=== PATIENT | male | born 1985 | race Caucasian/White ===

== ENCOUNTER 2016-09-03 11:01 | Emergency (ER) | payer OTHER ==
[~2016-09-03] VITALS: Ht 182.9 cm; Wt 126.7 kg
[~2016-09-03 11:01] MED LIST changes: -IBP200T PO
--- OUTSIDE RECORDS SUMMARY | 2016-09-03 11:08 | XMS REPORT | Continuity of Care Document ---
Author Author [facility] Organization [facility] Address Unknown Phone Unavailable Allergies Medications Problems Date Dx Coded Attending Type Code Diagnosis Diagnosed By 04/09/2014 Daniel Gregorio M.D. 079.99 VIRAL INFECTION NOS 04/09/2014 Daniel Gregorio M.D. 305.1 TOBACCO USE DISORDER 04/09/2014 Daniel Gregorio M.D. 487.1 FLU W RESP MANIFEST NEC 04/09/2014 Daniel Gregorio M.D. 787.01 NAUSEA WITH VOMITING 08/31/2015 Oren Gomes D.O. F17.210 NICOTINE DEPENDENCE, CIGARETTES, UNCOMPLICATED 08/31/2015 Oren Gomes D.O. 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 Guy K04.7 PERIAPICAL ABSCESS WITHOUT SINUS Procedures Results Test Result Range AG INFLUENZA A B - 04/09/14 15:30 Performing Location: AG INFLUENZA A NEGATIVE NEGATIVE AG INFLUENZA B POSITIVE NEGATIVE CBC WITH DIFFERENTIAL - 04/09/14 15:40 WHITE BLOOD CELL 8.1 k/cumm 4.8-10.8 RED BLOOD CELL 5.05 m/cumm 4.7-6.4 HEMOGLOBIN 15.6 gm/dL 14.0-18.0 HEMATOCRIT 44.3 % 42-52 MEAN CELL VOLUME 87.7 fl 80-94 MEAN CELL HGB 30.9 pg 27-31 MEAN CELL HGB CONCENTRATION 35.2 g/dL 33.0-37.0 RED CELL DISTRIBUTION WIDTH 12.3 % 11.5- 14.5 PLATELET COUNT 207 k/cumm 130-400 NEUTROPHIL % 84.5 % 43-65 LYMPHOCYTE % 8.1 % 20-45 MONOCYTE % 6.8 % 5-12 EOSINOPHIL % 0.4 % 0.9-2.9 BASOPHIL % 0.2 % 0.25-1.0 ABSOLUTE NEUTROPHIL # 6.88 k/cumm 2.2- 4.8 LYMPHOCYTE # 0.7 k/cumm 1.3-2.9 MONOCYTE # 0.6 k/cumm 0.31-0.83 EOSINOPHIL # 0.0 k/cumm 0.05-0.22 BASOPHIL # 0.0 k/cumm 0.02-0.06 DIFFERENTIAL/MORPHOLOGY AUTO DIFF Performing Location: METABOLIC PANEL, [facility] - 04/09/14 15:40 Performing Location: SODIUM 137 mmol/L 135-145 POTASSIUM 4.1 mmol/L 3.6-5.2 CHLORIDE 102 mmol/L 100-108 CARBON DIOXIDE 25.6 mmol/L 21.0-32.0 ANION GAP 14 mmol/L 10-20 GLUCOSE 116 mg/dL 70-110 BLOOD UREA NITROGEN 17 mg/dL 7-22 CREATININE 1.4 mg/dL 0.8-1.3 BUN/CREATININE RATIO 12.1 GLOMERULAR FILTRATION RATE 64.06 CALCIUM 8.4 mg/dL 8.7-10.5 TOTAL PROTEIN 6.9 gm/dL 6.0-8.0 ALBUMIN 3.4 gm/dL 3.5-5.0 GLOBULIN 3.5 gm/dL 2.1-3.5 ALBUMIN/GLOBULIN RATIO 1.0 1.1-2.2 BILIRUBIN TOTAL 0.6 mg/dL 0.0-1.0 SGOT/AST 29 UNIT/L 15-37 SGPT/ALT 65 UNIT/L 12-78 ALKALINE PHOSPHATASE TOTAL 95 UNIT/L 46- 116 Encounters ACCT No. Visit Date/Time Discharge Status Pt. Type Provider Facility Loc./Unit Complaint [id number] 08/31/2015 05:03:00 2015 05:46:00 DIS Emergency Oren Gomes D.O. [facility] D.ER [id number] 04/09/2014 14:58:00 2013 16:56:00 DIS Emergency Daniel Gregorio M.D. [facility] D.ER
[2016-09-03] MEDS ORDERED: SODIUM CHLORIDE FLUSH 10 ML SYR IV PRN (11:20)
[2016-09-03] MEDS ORDERED: ONDANSETRON 2 MG/ML (Z0FRAN) 2 ML VIAL IV ONE (11:20)
[2016-09-03] MEDS ORDERED: SODIUM CHLORIDE FLUSH 3 ML SYR IV ONE (11:20)
[2016-09-03] MEDS ORDERED: KETOROLAC 30 MG/ML (TORADOL) 1 ML VIAL IV ONE (11:20)
[2016-09-03] MEDS ORDERED: IBP200T PO (11:30)
[2016-09-03 11:36] LABS: BASOPHILS % (AUTO) 0 % (0-2); EOSINOPHILS # (AUTO) 0.3 10^3uL; EOSINOPHILS % (AUTO) 4 % (0-4); MEAN CORPUSCULAR VOLUME 89 FL (80-100); MONOCYTES # (AUTO) 0.6 X10^3; MONOCYTES % (AUTO) 8 % (3-11); NEUTROPHILS % (AUTO) 63 % (51-67); PLATELET COUNT 223 10^3uL (150-450); WHITE BLOOD COUNT 7.93 10^3uL (4.0-11.0)
[2016-09-03 11:37] LABS: MEAN CORPUSCULAR HEMOGLOBIN 31.4 PG (26.0-34.0); MEAN CORPUSCULAR HGB CONC 35.5 g/dL (31.0-37.0)
[2016-09-03 11:45] LABS: ALBUMIN 4.2 g/dL (3.4-5.0); ANION GAP 16.4 MEQ/L (3-15); TOTAL PROTEIN 7.5 g/dL (6.4-8.5)
[2016-09-03 11:47] LABS: BILIRUBIN,URINE Negative (Negative); CLARITY,URINE Clear; COLOR,URINE Dark Yellow; GLUCOSE, URINE (UA) Negative (Negative); LEUKOCYTE ESTERASE ,URINE Negative (Negative); PH,URINE 5.5 (5.0 - 8.0); UROBILINOGEN,URINE 0.2 mg/dL (0.2-1.0)
[2016-09-03 11:55] LABS: AMPHETAMINE SCREEN, URINE Negative (Negative); CANNABINOID SCREEN, URINE Negative (Negative); METHAMPHETAMINE SCREEN URINE S NEGATIVE (NEGATIVE); OPIATE SCREEN URINE Negative (Negative); PROPOXYPHENE STAT NEGATIVE (NEGATIVE)
--- NOTE | 2016-09-03 12:24 | Diagnostic Imaging Report ---
PROCEDURE: CT abdomen and pelvis without contrast. TECHNIQUE: Multiple contiguous axial images were obtained through the abdomen and pelvis without the use of intravenous contrast. INDICATION: Right lower quadrant pain. FINDINGS: Lung bases are clear. Liver appears normal. Gallbladder and bile ducts are normal. Pancreas and spleen are normal. Adrenal glands appear normal. Kidneys show no evidence of obstruction or calculi. Renal outlines are smooth. The stomach and small bowel are not distended. The colon shows normal stool and gas pattern. The appendix is visualized and is normal. There are diverticuli in the descending and sigmoid colon but no evidence of diverticulitis. There is no free air or free fluid. No intra-abdominal adenopathy of pathologic size. IMPRESSION: 1. The appendix is visualized and normal. 2. There is diverticulosis of the descending colon without evidence of diverticulitis. 3. Gallbladder and bile ducts are normal. Dictated by: Dictated on workstation # [id number]
[2016-09-03] MEDS ORDERED: HYDR-3702 PO (12:43)
[2016-09-03 13:38] VITALS: BP 114/77
== END 2016-09-03 13:25 | disposition home or self-care (01) ==
LOC: EDUNIT# 11:01 → ED 11:04
DX: R10.31 Right lower quadrant pain (principal)
CPT/HCPCS: 36415; 74176; 80053; 80307; 81003; 82150; 83690; 85025; 86140; 96361; 96374; 96375; 99284; J1885; J2405; J7030; 99283

== ENCOUNTER → 2016-09-03 | Outpatient (CLI) | payer OTHER ==
[~2016-09-03] MED LIST: BACI3.5O6 OS; HYDR-3702 PO; IBP200T PO
[2016-09-03 10:58] VITALS: BP 147/91
--- NOTE | 2016-09-03 10:58 | Urgent Care T Sheet Gen (E) ---
Intake General Temperature (Fahrenheit): 97.2 Pulse: 72 Blood Pressure Systolic: 147 Blood Pressure Diastolic: 91 Respirations: 20 SPO2: 98 Chief Complaint: UC GI Complaint Description of Symptoms Comes in today for abdominal pain x several days. Radiates to his low back , no high fevers. Has been nauseated. In exam room in pain just to lay down. I briefly examined him, tender RLQ with rebound and hypoactive BS heard. No vomiting, Took to ibuprofen 2 days ago and reports black tarry stools today. Spoke with him about heading to the ED- called Cecil FERRARA and gave report- pt to the ED for further evaluation. Concerned about Appendix? Kidney Stone? GI bleed? Source: Patient History of Present Illness Onset & Duration: Days (x2) Timing: Worse Severity: Moderate Recent Trauma: No Allergies: Coded Allergies: No Known Drug Allergies (Unverified , 02/01/16) Home Meds Active Scripts Bacitracin (Bacitracin Ophthalmic Ointment)3.5 Gm Oint...g.3.5 Gm OS Q6H #1 TUBE Prov:MOLLY BRAUN MD 02/01/16 Hydrocodone Bit/Acetaminophen (Hydrocodon-Acetaminophen 5-325)1 Each Tablet1 Each PO Q4H PRN PAIN #10 TAB Prov:MOLLY BRAUN MD 02/01/16 Respiratory Constitutional Symptoms: No Fever Gastrointestinal/Abdominal: Abdominal pain Black stools NauseaNo Vomiting, RLQ (with rebound tenderness) All Other Systems Reviewed Remaining Systems: All other systems reviewed with negative findings Past Zxpiqhn-Simjkw-Binpba Hx Patient's Social History Alcohol Use: Denies Use Smoking Status: Current some day smoker Recent foreign travel: No Surgeries/Hospitalizations Hospitalization/Surgery Hx: 2 muscle biopsies to each thigh. 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, epilepsy Reproductive System Sexually Transmitted Diseases: No Gastrointestinal GI/Endocrine History: None Diabetes Diabetes: No HEENT Impaired Vision: None Hearing Impaired: None Psychosocial Behavior Disorders: None Physical Exam Physical Exam General Appearance: WD/WN Mild distress Eyes, Ears, Nose, Throat Ex: PERRL/EOMI Respiratory Exam: Lungs clear Normal breath sounds No respiratory distress Cardiovascular Exam: Regular rate, rhythm No murmur GI/ Exam: Tenderness (RLQ- hypoactive BS heard-radiates to low back) Rebound Skin Exam: Normal color Warm/dry/intact No rashes Departure Urgent Care Impression Chief Complaint: UC GI Complaint Impression: Primary Impression: Abdominal pain Qualified Code: R10.31 - Right lower quadrant pain Departure Departed Disposition: To [facility] ED Condition: Stable Additional Instructions: Pt agrees to go to the ED- he came here not sure what to do. I spoke with Cecil FERRARA- gave report- pt going for further evaluation. End of report . MAURO MOURA APRN () Sep 03, 2016 10:58
== END ==
LOC: MHUC 10:41
PROVIDERS: ATTEND Physician Assistant
DX: R10.31 Right lower quadrant pain (principal)
CPT/HCPCS: 99212